=== PATIENT | male | born 2000 | race African-American/Black ===

== ENCOUNTER 2021-04-22 14:13 | Emergency (ER) | payer MEDICAID ==
[~2021-04-22] VITALS: Ht 165.1 cm; Wt 2.7 kg
[~2021-04-22 14:13] MED LIST: ALBU1.25 IH; ALBUTEROL; ARIP15TA1 PO; MESA1.2T PO; ONDA8TAB87 PO; [UNRECOGNIZED DRUG - CODE] PO
[2021-04-22 14:14] VITALS: BP 117/70
[2021-04-22] MEDS ORDERED: NACL 0.9% 1,000 ML IV SCH (14:45)
[2021-04-22] MEDS ORDERED: ACETAMINOPHEN 325 MG TAB PO ONE (14:50)
--- NOTE | 2021-04-22 15:00 | NUR ---
20/M presents to ED with c/o dizziness and headache x4 days. Patient states he passed out for "about 10 seconds" while playing basketball outside 4 days ago. Patient states it was hot out and he felt over heated when he passed out. Patient states ever since he has had dizziness, headache and intermittent chest pain with no relief. Patient denies any blurred vision, nausea or vomiting, patient alert and oriented x4 able to answer questions appropriately, mother at bedside.
--- NOTE | 2021-04-22 15:08 | NUR ---
Colette and strep swabs collected and handed to [facility] dental lab technician
[2021-04-22] MEDS ORDERED: MECL-303 PO (15:58)
[2021-04-22] MEDS ORDERED: IBUP-2213 PO (15:58)
--- NOTE | 2021-04-22 16:09 | NUR ---
PATIENT ELOPED FROM FACILITY. DISCHARGE INSTRUCTIONS NOT GIVEN TO PATIENT. ANNA aldana
== END 2021-04-22 16:09 | disposition home or self-care (01) ==
LOC: MED 14:13
DX: U07.1 COVID-19 (principal); J45.909 Unspecified asthma, uncomplicated; K21.9 Gastro-esophageal reflux disease without esophagitis; Z56.0 Unemployment, unspecified; Z79.899 Other long term (current) drug therapy; Z20.822 Contact with and (suspected) exposure to COVID-19
CPT/HCPCS: 81002; 86308; 87081; 87426; 93005; 99284; J7030